=== PATIENT | female | born 1945 | race Caucasian/White ===

== ENCOUNTER 2017-01-11 20:46 | Inpatient (IN) | payer MEDICARE, MEDICAID ==
[~2017-01-11 20:46] MED LIST: ISOVUE-370 76%-LOCM 1 ML ONE
[2017-01-11] MEDS ORDERED: Albuterol Sulfate 2.5 mg/3 ml Neb ONE (20:58)
[2017-01-11] MEDS ORDERED: Magnesium Sulfate 2 GM/100 ML BAG ONE (21:09)
[2017-01-11 21:14] LABS: Oxyhemoglobin 94.6 % (94.0-97.0); Sodium 137 mmol/L (135-148)
[2017-01-11 21:18] LABS: Modified Allen's Test POSITIVE; Pressure Support 10 cmH2O
[2017-01-11 21:20] LABS: #Basophils 0.1 thou/uL (0.0-0.2); #Eosinphils 0.3 thou/uL (0.0-0.7); #Lymphocytes 2.2 thou/uL (1.20-3.40); #Monocytes 1.1 thou/uL (0.11-0.59); #Neutrophils 3.8 thou/uL (1.40-6.50); %Basophils 0.9 % (0.0-1.0); %Eosinophils 3.6 % (0.0-10.0); %Lymphocytes 30.1 % (21.0-51.0); %Monocytes 14.3 % (0.0-10.0); Hematocrit 36.9 % (36.0-47.0); Mean Platelet Volume 7.8 fL (7.4-10.4); Red Blood Cell (RBC) Count 3.85 mill/uL (4.20-5.40); White Blood Cell (WBC) Count 7.4 thou/uL (4.8-10.8)
--- NOTE | 2017-01-11 21:36 | RAD ---
PORTABLE AP CHEST X-RAY 01/11/17 HISTORY: Dyspnea. Worsening shortness of breath today. History of COPD. COMPARISON: 02/25/16. FINDINGS: Stent overlies region of the aortic valve also seen on prior study. The cardiac silhouette and pulmonary vasculature are within normal limits. The lungs are clear. [place] right sided rib fractures are again seen. vascular calcifications are seen in the thoracic aorta. There has been no interval change from prior study. IMPRESSION: No acute cardiopulmonary process. POS: [facility]
[2017-01-11 21:43] LABS: ALT (SGPT) 17 U/L (8-55); AST (SGOT) 22 U/L (5-34); Alkaline Phosphatase 82 U/L (40-150); BUN (Urea Nitrogen) 17 mg/dL (9.8-20.1); Bilirubin, Total 0.2 mg/dL (0.2-1.2); CK (CPK) 327 U/L (29-168); Calc. Creatinine Clearance 0 mL/min (70-130); Calcium 9.3 mg/dL (7.8-10.44); Estimated GFR-MDRD 79; Globulin 3.1 g/dL (2.4-3.5); Lipase 13 U/L (8-78); Magnesium 2.4 mg/dL (1.6-2.6); Protein, Total 7.2 g/dL (6.0-8.3)
[2017-01-11 21:47] LABS: Troponin I Less than 0.010 ng/mL (< 0.028)
[2017-01-11 21:52] LABS: Anion Gap 13 mmol/L (10-20); Carbon Dioxide 36 mmol/L (23-31); Chloride 94 mmol/L (98-107)
--- NOTE | 2017-01-11 23:46 | CT ---
CT ANGIOGRAM THORAX WITH IV CONTRAST AND 3D RECONSTRUCTIONS: 01/11/17 HISTORY: Shortness of breath, worsening cough and congestion. COMPARISON: 02/12/12. FINDINGS: No filling defects are seen in the pulmonary arteries to suggest a pulmonary embolus. Aortic valve r eplacement is noted with stent material seen in this region. Vascular calcifications are seen in the thoracic as well as abdominal aorta. The thoracic aorta is n ormal in caliber without evidence of an aortic dissection. There is a tiny less than 5 mm pulmonary nodule seen within the lateral aspect of the right middle l obe which is stable dating back to study in 2011. No additional pulmonary nodule or mass is seen, an d there is no evidence of a pleural effusion. There is no evidence of lymphadenopathy. Upper abdomen demonstrates a grossly normal CT appearance. Remote left sided rib fractures are present. Right pleural effusion has resolved. IMPRESSION: 1. No CT evidence of a pulmonary embolus. 2. Atherosclerotic vascular calcifications in the coronary arteries and involving the thoracic as well as visualized upper abdominal aorta. 3. Left convex curvature upper thoracic spine with degenerative changes in the spine. POS: [facility]
[2017-01-12 01:02] LABS: Troponin I 0.018 ng/mL (< 0.028)
[2017-01-12] MEDS ORDERED: Ondansetron ODT 4 MG TAB SL PRN (02:24)
[2017-01-12] MEDS ORDERED: Ondansetron HCl/PF 4 MG/2 ML Vial IVP PRN ×2 (02:24→07:28)
[2017-01-12 03:15] VITALS: BMI 21.7
[2017-01-12 04:52] LABS: Troponin I 0.033 ng/mL (< 0.028)
[2017-01-12] MEDS ORDERED: Adenosine 6 MG/2 ML VIAL ONE (06:50)
[2017-01-12] MEDS ORDERED: cloNIDine HCl 0.1 MG TAB PO PRN (07:28)
[2017-01-12] MEDS ORDERED: Chloraseptic Spray 180 ml Bottle PO PRN (07:28)
[2017-01-12] MEDS ORDERED: Loratadine 10 MG TAB PO PRN (07:28)
[2017-01-12] MEDS ORDERED: Artificial Tears 18 DROP/0.9 ML EA EYE PRN (07:28)
[2017-01-12] MEDS ORDERED: Senokot 8.6 MG TAB PO PRN (07:28)
[2017-01-12] MEDS ORDERED: Acetaminophen 325 MG TAB PO PRN (07:28)
[2017-01-12] MEDS ORDERED: Mag-Al 1200 mg/1200 mg/30 ML UDCUP PO PRN (07:28)
[2017-01-12] MEDS ORDERED: Diabetic Tussin 200 MG/10 ML UDCUP PO PRN (07:28)
[2017-01-12] MEDS ORDERED: Sodium Chloride 0.65% Nasal 44 ML BOT EA NARE PRN (07:28)
[2017-01-12] MEDS ORDERED: Ondansetron ODT 4 MG TAB PO PRN (07:28)
[2017-01-12] MEDS ORDERED: Eucerin (Mineral Oil/Petrolatum,White) 30 gm Jar TOP PRN (07:28)
[2017-01-12] MEDS ORDERED: Loperamide HCl 2 MG CAP PO PRN (07:28)
[2017-01-12] MEDS ORDERED: Benzonatate 100 MG CAP PO PRN (07:28)
[2017-01-12] MEDS ORDERED: Milk Of Magnesia 30 ML UDCUP PO PRN (07:28)
[2017-01-12] MEDS ORDERED: Dextrose 50% Abboject 50 ML SYRINGE SLOW IVP PRN (07:34)
[2017-01-12] MEDS ORDERED: Dextrose 5% in Water 1,000 ML IV PRN (07:34)
[2017-01-12] MEDS ORDERED: Furosemide 40 MG TAB PO SCH (09:00)
[2017-01-12] MEDS ORDERED: Enoxaparin Sodium 40 MG/0.4 ML SYRINGE SC SCH (09:00)
[2017-01-12] MEDS ORDERED: Non-Formulary Item 1 EACH (Escitalopram Oxalate [Lexapro] 5 MG) PO SCH (09:00)
[2017-01-12] MEDS ORDERED: Senokot 8.6 MG TAB PO SCH (09:00)
[2017-01-12] MEDS ORDERED: Lorazepam 1 MG TAB PO SCH (09:00)
[2017-01-12] MEDS ORDERED: Non-Formulary Item 1 EACH (Cholecalciferol (Vitamin D3) [Vitamin D3] 1,000 UNIT) PO SCH (09:00)
[2017-01-12] MEDS ORDERED: Non-Formulary Item 1 EACH (Ubidecarenone [Co Q-10] 100 MG) PO SCH (09:00)
[2017-01-12] MEDS ORDERED: Furosemide 20 MG TAB PO SCH (09:00)
[2017-01-12] MEDS: Lorazepam 0.5 MG TAB PO SCH (09:08)
[2017-01-12] MEDS: Ubidecarenone 50 MG CAP PO SCH (09:09)
[2017-01-12] MEDS: Escitalopram Oxalate 10 mg Tablet PO SCH (09:09)
[2017-01-12] MEDS: guaiFENesin ER 600 MG TAB PO SCH ×2 (09:09→20:14)
[2017-01-12] MEDS: Digoxin 0.125 MG TAB PO SCH (09:09)
[2017-01-12] MEDS: Polyethylene Glycol 3350 17 GM Packet PO SCH ×2 (09:19→20:14)
[2017-01-12] MEDS: HumaLOG 300 UNITS/3 ML VIAL SC PRN ×4 (09:20→20:14)
[2017-01-12] MEDS: Senokot 8.6 MG TAB PO SCH ×2 (09:40→20:14)
--- NOTE | 2017-01-12 10:59 | HP ---
PRIMARY CARE PHYSICIAN: Dr. Aramis Harris at [facility]. PRIMARY FINISHING OPERATOR: Dr. Patricio REASON FOR ADMISSION: COPD exacerbation, [id number] respiratory failure with hypoxia. HISTORY OF PRESENT ILLNESS: A 71-year-old female who has underlying history of chronic respiratory failure requiring home oxygen 3 liters nasal cannula as well as history of COPD and chronic diastolic heart failure who presented to emergency room last night with complaint of shortness of breath. Patient was having shortness of breath for the last couple of days which was gradually getting worse, but last night she had more short of breath and she was not able to take breathe and she was not able to talk in full sentences. She was feeling rapidly worse and that is why she called paramedics and paramedics brought her to the emergency room for evaluation. When this patient came to the ER, patient was hypertensive. She was given Solu- Medrol 125 mg, Zofran 8 mg, nitro spray and nitro patch by paramedics. The patient was in respiratory distress and subsequently she was admitted in IMCU. This morning, the patient appeared to be comfortable. She was on BiPAP. She was able to talk and provide history. This patient does use oxygen at home and she does have a nebulizer therapy. She denies any flu-like illness. She denies any chest pain, palpitations or syncope. She denies any lower extremity edema. She denies any calf tenderness. She denies any recent travel or sick exposure. She denies any nausea, vomiting, diarrhea, abdominal pain, hematochezia, or melena. REVIEW OF SYSTEMS: The following complete review of systems was negative, unless otherwise mentioned in the HPI or below: Constitutional: Weight loss or gain, ability to conduct usual activities. Skin: Rash, itching. Eyes: Double vision, pain. ENT/Mouth: Nose bleeding, neck stiffness, pain, tenderness. Cardiovascular: Palpitations, dyspnea on exertion, orthopnea. Respiratory: Shortness of breath, wheezing, cough, hemoptysis, fever or night sweats. Gastrointestinal: Poor appetite, abdominal pain, heartburn, nausea, vomiting, constipation, or diarrhea. Genitourinary: Urgency, frequency, dysuria, nocturia. Musculoskeletal: Pain, swelling. Neurologic/Psychiatric: Anxiety, depression. Allergy/Immunologic: Skin rash, bleeding tendency. Please see my HPI for pertinent positives and negatives. All other review of systems reviewed and negative except as mentioned in the HPI. EMERGENCY ROOM COURSE: Patient was given Solu-Medrol 125 mg, nitro patch, nitro paste by paramedics. Magnesium 2 grams and albuterol nebulization and Levaquin 750 mg was given in our emergency room. ALLERGIES: SULFA DRUGS. CURRENT HOME MEDICATIONS: ProAir HFA 2 puffs q.8 h. p.r.n., Lipitor 40 mg p.o. at bedtime, Symbicort two puff inhalation b.i.d., vitamin D3 1000 units p.o. daily, digoxin 125 mcg p.o. daily, Lexapro 5 mg p.o. daily, formoterol 20 mcg nebulization b.i.d., Lasix 20 mg p.o. daily, Lantus 9 units subQ at bedtime, Humalog insulin as per sliding scale, DuoNeb daily, Synthroid 125 mcg p.o. daily , Ativan 0.5 mg p.o. daily, MiraLax 17 grams p.o. b.i.d., senna 1 tablet twice daily, Spiriva 18 mcg inhalation daily, Coenzyme Q10 100 mg p.o. daily. PAST MEDICAL HISTORY: Chronic respiratory failure requiring home oxygen, chronic COPD, chronic diastolic heart failure, coronary artery disease, moderate aortic valve stenosis, diabetes type 2, hypertension, hypothyroidism, chronic normocytic anemia, gastroesophageal reflux disease, chronic kidney disease stage 2, diverticulosis, history of TIA, former smoker. PAST SURGICAL HISTORY: Cardiac catheterization, tubal ligation, abdominal surgery, carpal tunnel repair. PAST PSYCHIATRIC HISTORY: Anxiety and depression. FAMILY HISTORY: The patient denies any family history of premature coronary artery disease, stroke or cancer. SOCIAL HISTORY: Patient is a former smoker. She quit smoking about 6 years ago. No history of current tobacco, alcohol or illicit drug abuse. PHYSICAL EXAMINATION: VITAL SIGNS: On arrival to the emergency room, blood pressure 175/89, pulse 108 , respiratory rate 23, temperature 97.6, saturation 100% on BiPAP, weight 50.8 kilograms. GENERAL: Patient is currently alert, awake, no obvious acute distress, currently on BiPAP. HEENT: Normocephalic, atraumatic. Eyes: Pupils round, reactive to light. Extraocular muscles intact. ENT: Oropharynx within normal limits. Moist mucous membranes. No oral lesions. No pharyngeal erythema, no exudate. NECK: Supple. Range of motion is normal. No meningeal signs of irritation and no JVD. LUNGS: Coarse breath sounds noted, bilateral end expiratory wheezing heard. Air entry reduced. A few basilar rales noted. CARDIAC: S1, S2 regular, tachycardia, systolic murmur noted. No gallop, no rub. ABDOMEN: Soft, bowel sounds present, nontender, nondistended. No organomegaly , no mass, no suprapubic tenderness. BACK: Unremarkable, no CVA tenderness. EXTREMITIES: Upper extremity passive movement of all joints are normal. Lower extremities: No edema. Good peripheral pulsation. SKIN: No skin rash. HEMATOLOGICAL: No lymphadenopathy. PSYCHIATRIC: Normal affect. SIGNIFICANT LABORATORY DATA AND DIAGNOSTIC STUDIES: CBC: WBC 7.4, hemoglobin 11.6, platelets 205. ABG: pH 7.27, bicarbonate 39.4, CO2 88.8, O2 97.2 on BiPAP. BMP shows sodium 139, potassium 4.0, chloride 94, carbon dioxide 36, anion gap 13, BUN 17, creatinine 0.73, glucose 86, calcium 9.3. Lactic acid 1.1. LFT: AST 22, ALT 17, alkaline phosphatase 82, albumin 4.1, CK 327, CK-MB 3.0, troponin I less than 0.010. BNP 52.6. Second cardiac enzymes negative. Lipase 13. Chest x-ray based on my review, no acute cardiopulmonary process. CT angio chest based on my review and reported as no evidence of pulmonary embolism. ASSESSMENT AND PLAN: 1. [id number]-[id number] respiratory failure with hypoxia and hypercapnia. The patient required BiPAP initially and now patient is comfortable. We will try to wean her from BiPAP today and Pulmonary will be consulted. We will continue oxygen to maintain saturation up to 92%. 2. Chronic obstructive pulmonary disease exacerbation. We will continue with DuoNeb every 4 hourly, Solu-Medrol 40 mg IV q.6 h., formoterol nebulization twice daily, Mucinex 600 mg twice daily along with empiric antibiotic therapy with Levaquin 500 mg p.o. daily. Pulmonary will be consulted and will monitor clinical response. 3. Dyslipidemia. We will continue Lipitor 40 mg p.o. at bedtime. 4. Vitamin D deficiency. We will continue vitamin D3 1000 units p.o. daily. 5. Anxiety and depression. We will continue Ativan 0.5 mg p.o. daily and Lexapro 5 mg p.o. daily. 6. Diabetes type 2. We will continue the Levemir 9 units subQ at bedtime along with Humalog insulin as per sliding scale per protocol. We are expecting that with steroid her diabetes may get worse, but in that case, we will increase the insulin requirement. 7. Hypothyroidism. We will continue Synthroid 125 mcg p.o. daily. 8. Elevated troponin, likely due to demand ischemia. We will monitor on the telemetry floor. 9. Gastroesophageal reflux disease. Continue Protonix 40 mg p.o. daily. 10. Deep venous thrombosis prophylaxis, Lovenox 30 mg subcutaneously daily and gastrointestinal prophylaxis, Protonix 40 mg p.o. daily. 11. chronic diastolic heart failure: currently stable and compensated 12. CAD: stable with home medical treatment 13. Hypertension: controlled with home medication 14. Moderate aortic stenosis: advised follow with cardiology after discharge. CODE STATUS: I spoke with the patient and the patient does not want to be resuscitated in case of cardiopulmonary arrest and she requested DNR order. Patient's son is surrogate decision maker. Disposition plan based on clinical course. We are expecting patient's stay in hospital more than 2 midnights. Plan of care discussed with the patient in detail. NEELAM
[2017-01-12] MEDS ORDERED: Furosemide 20 MG/2 ML VIAL SLOW IVP SCH (13:15)
--- NOTE | 2017-01-12 15:34 | CON ---
DATE OF CONSULTATION: 01/12/2017 SERVICE: Pulmonary Medicine REASON FOR CONSULTATION: COPD exacerbation. HISTORY OF PRESENT ILLNESS: The patient is a 71-year-old white female with past medical history significant for pretty severe COPD who presented to the Emergency Department after an abrupt onset of difficulty breathing while she was drinking a glass of wine. She also has anxiety disorder. She has a history of aortic stenosis and her valve has been replaced. She was placed on CPAP overnight. She had a significant improvement in her breathing. She denies any current fevers, chills, nausea or vomiting. Her cough is at baseline. Her dyspnea is actually improved back to normal. PAST MEDICAL HISTORY: 1. COPD, severe. 2. History of aortic stenosis, status post aortic valve replacement. 3. Coronary artery disease. 4. Hypertension. 5. Dyslipidemia. 6. Chronic hypoxic respiratory failure. 7. Chronic diastolic heart failure. 8. Type 2 diabetes mellitus. 9. Hypothyroidism. 10. Gastroesophageal reflux disease. 11. Chronic kidney disease, stage 2. 12. Anxiety disorder. 13. Major depressive disorder. 14. History of TIA. PAST SURGICAL HISTORY: 1. Cardiac catheterization. 2. Aortic valve replacement. 3. Belly surgery. 4. Tubal ligation. ALLERGIES: SULFA. HOME MEDICATIONS: List of inpatient medications were reviewed. Multiple updates were made. FAMILY HISTORY: Noncontributory. SOCIAL HISTORY: She has a [id number] history of smoking, but quit roughly 4 years ago. She has no current use of alcohol, tobacco or illicit drugs. She has no exposure to chemicals, dust, asbestos or tuberculosis. REVIEW OF SYSTEMS: General, head, ears, eyes, nose, throat, cardiovascular, respiratory, GI, , musculoskeletal, neurologic and skin is negative except as mentioned in the HPI. PHYSICAL EXAMINATION: VITAL SIGNS: Afebrile, pulse was 96, blood pressure was 113/33, respirations 20 , saturation 95% on 3 liters nasal cannula. GENERAL: The patient is awake, alert, in no apparent distress. LUNGS: Reduced air entry with prolonged expiratory phase and wheezing. There is extensive crackles in the bibasilar region. HEART: Normal rate, regular. ABDOMEN: Soft, nontender, nondistended, bowel sounds positive. MUSCULOSKELETAL: No cyanosis or clubbing. There is trace pitting in the bilateral lower extremities. GENITOURINARY: No Pan. NEUROLOGIC: Grossly nonfocal. LABORATORY: WBC 7.4, hemoglobin 11.6, platelets 205,000. INR 1.0. PH 7.27, pCO2 88, pO2 97. Lactate 1.1. Blood sugars 424. Troponin is up trending to 0.033. Basic metabolic profile, and liver function studies are otherwise unremarkable. BNP was normal. Blood cultures x2 are negative to date. IMAGING: CT of the chest demonstrates no evidence of a pulmonary embolism. There is no acute abnormality identified. No pneumonia. Chronic changes consistent with emphysema are present. Chest x-ray demonstrates no acute cardiopulmonary abnormality. ASSESSMENT: 1. Acute on chronic hypoxic and hypercapnic respiratory failure. 2. Chronic obstructive pulmonary disease with acute exacerbation. 3. Acute on chronic diastolic heart failure. 4. Aortic stenosis. PLAN: We will diurese the patient. At this point, she can transition out of the ICU. I will deescalate her steroids. We will commit her to a 5-day course of prednisone. I will escalate her insulin. Pulmonary Critical Care will continue to follow while she remains in house. NEELAM
[2017-01-12] MEDS: Mometasone/Formoterol 120 PUFF INHALER INH SCH (18:37)
[2017-01-12] MEDS ORDERED: Budesonide 0.5 MG/2 ML NEB INH SCH (19:30)
[2017-01-12] MEDS: Insulin Detemir 100 UNITS/ML 9 UNITS in Pre-Filled Syringe 1 EACH SC SCH (20:13)
[2017-01-12] MEDS: Atorvastatin Calcium 40 MG TAB PO SCH (20:14)
[2017-01-12] MEDS ORDERED: INSULIN GLARGINE HUM REC ANLOG 9 UNIT SQ SCH (21:00)
[2017-01-13 05:19] LABS: #Basophils 0.1 thou/uL (0.0-0.2); #Lymphocytes 1.2 thou/uL (1.20-3.40); #Monocytes 1.4 thou/uL (0.11-0.59); #Neutrophils 9.3 thou/uL (1.40-6.50); %Basophils 0.4 % (0.0-1.0); %Eosinophils 0.4 % (0.0-10.0); %Lymphocytes 9.9 % (21.0-51.0); %Monocytes 11.6 % (0.0-10.0); Hematocrit 30.9 % (36.0-47.0); Mean Platelet Volume 8.3 fL (7.4-10.4); Red Blood Cell (RBC) Count 3.21 mill/uL (4.20-5.40); White Blood Cell (WBC) Count 11.9 thou/uL (4.8-10.8)
[2017-01-13 05:44] LABS: ALT (SGPT) 15 U/L (8-55); AST (SGOT) 26 U/L (5-34); Alkaline Phosphatase 64 U/L (40-150); BUN (Urea Nitrogen) 29 mg/dL (9.8-20.1); Bilirubin, Total 0.2 mg/dL (0.2-1.2); Calc. Creatinine Clearance 61 mL/min (70-130); Calcium 8.7 mg/dL (7.8-10.44); Estimated GFR-MDRD 82; Globulin 2.3 g/dL (2.4-3.5); Protein, Total 5.7 g/dL (6.0-8.3)
[2017-01-13 05:54] LABS: Anion Gap 11 mmol/L (10-20); Carbon Dioxide 36 mmol/L (23-31); Chloride 94 mmol/L (98-107)
[2017-01-13] MEDS: Levothyroxine Sodium 125 MCG TAB PO SCH (05:58)
[2017-01-13] MEDS: Mometasone/Formoterol 120 PUFF INHALER INH SCH ×2 (07:11→18:16)
[2017-01-13] MEDS: Budesonide 0.5 MG/2 ML NEB INH SCH ×2 (07:11→18:15)
[2017-01-13] MEDS: Senokot 8.6 MG TAB PO SCH ×2 (08:48→20:40)
[2017-01-13] MEDS: predniSONE 20 MG TAB PO SCH (08:48)
[2017-01-13] MEDS: Escitalopram Oxalate 10 mg Tablet PO SCH (08:48)
[2017-01-13] MEDS: guaiFENesin ER 600 MG TAB PO SCH ×2 (08:48→20:38)
[2017-01-13] MEDS: Lorazepam 0.5 MG TAB PO SCH (08:49)
[2017-01-13] MEDS: Polyethylene Glycol 3350 17 GM Packet PO SCH ×2 (08:50→20:38)
[2017-01-13] MEDS: Digoxin 0.125 MG TAB PO SCH (08:50)
[2017-01-13] MEDS: Furosemide 20 MG/2 ML VIAL SLOW IVP SCH (08:51)
[2017-01-13] MEDS: Enoxaparin Sodium 30 MG/0.3 ML SYRINGE SC SCH (08:51)
[2017-01-13] MEDS: Ubidecarenone 50 MG CAP PO SCH (10:20)
[2017-01-13] MEDS: HumaLOG 300 UNITS/3 ML VIAL SC PRN ×3 (11:58→20:39)
--- NOTE | 2017-01-13 13:48 | PDOC.PN ---
- Subjective Encounter Start Date: 01/13/17 Encounter Start Time: 11:00 Subjective: breathing better, no sob - Objective Resuscitation Status: Resuscitation Status DNR:Do Not Resuscitate MAR Reviewed: Yes Vital Signs & Weight: Vital Signs (12 hours) Temp Pulse Resp BP Pulse Ox 01/13/17 11:38 98.8 F 92 18 127/71 97 01/13/17 11:05 91 16 98 01/13/17 08:50 86 01/13/17 08:00 98.8 F 86 18 01/13/17 07:33 98.8 F 86 18 125/66 98 01/13/17 07:11 98 16 98 01/13/17 07:09 98 16 98 01/13/17 04:36 98.7 F 99 20 113/63 100 01/13/17 02:15 101 H 16 99 Weight Weight 114 lb 11.2 oz I&O: 01/12/17 01/13/17 01/14/17 06:59 06:59 06:59 Intake Total 100 600 Output Total 300 Balance -200 600 Result Diagrams: 01/13/17 04:44 01/13/17 04:44 Additional Labs: Accuchecks 01/13/17 01/13/17 01/12/17 11:01 04:42 19:24 POC Glucose 295 H 81 360 H 01/12/17 01/12/17 16:37 13:34 POC Glucose 469 H 535 H Phys Exam - Physical Examination HEENT: PERRLA, moist MMs Neck: no JVD, supple Respiratory: no wheezing, no rales rhonchi+ Cardiovascular: RRR, no significant murmur Gastrointestinal: soft, non-tender, positive bowel sounds Musculoskeletal: no edema, pulses present Neurological: non-focal, moves all 4 limbs Psychiatric: A&O x 3 Dx/Plan (1) Acute and chronic respiratory failure with hypoxia Code(s): J96.21 - ACUTE AND CHRONIC RESPIRATORY FAILURE WITH HYPOXIA Status: Acute Comment: Improved (2) COPD exacerbation Code(s): J44.1 - CHRONIC OBSTRUCTIVE PULMONARY DISEASE W (ACUTE) EXACERBATION Status: Acute Comment: Improved (3) Anxiety and depression Code(s): F41.9 - ANXIETY DISORDER, UNSPECIFIED; F32.9 - MAJOR DEPRESSIVE DISORDER, SINGLE EPISODE, UNSPECIFIED Status: Chronic (4) Aortic stenosis Code(s): I35.0 - NONRHEUMATIC AORTIC (VALVE) STENOSIS Status: Chronic Comment: has pig valve replacement per patient, done at [facility] [place] (5) CAD (coronary artery disease) Code(s): I25.10 - ATHSCL HEART DISEASE OF [place] CORONARY ARTERY W/O ANG PCTRS Status: Chronic Qualifiers: Coronary Disease-Associated Artery/Lesion type: [place] artery [place] vs. transplanted heart: [place] heart Associated angina: without angina Qualified Code(s): I25.10 - Atherosclerotic heart disease of [place] coronary artery without angina pectoris (6) Hypertension Code(s): I10 - ESSENTIAL (PRIMARY) HYPERTENSION Status: Chronic Qualifiers: Hypertension type: essential hypertension Qualified Code(s): I10 - Essential (primary) hypertension (7) Hypothyroidism Code(s): E03.9 - HYPOTHYROIDISM, UNSPECIFIED Status: Chronic Qualifiers: Hypothyroidism type: unspecified Qualified Code(s): E03.9 - Hypothyroidism , unspecified (8) Normocytic anemia Code(s): D64.9 - ANEMIA, UNSPECIFIED Status: Chronic Comment: Stable - Plan is on prednisone, duonebs -: lasix iv small dose -: labile diabetes due to steroids ranging from 68-535 -: h/h stable -: to amb as tolerated, dc plan per pulm advice * . Review of Systems - Medications/Allergies Allergies/Adverse Reactions: Allergies Allergy/AdvReac Type Severity Reaction Status Date / Time Sulfa (Sulfonamide Allergy itching Verified 03/27/15 00:33 Antibiotics) Medications: Current Medications Acetaminophen (Tylenol) 650 mg PO Q4H PRN PRN Reason: Headache/Fever or Pain Last Admin: 01/12/17 09:40 Dose: 650 mg Al Hydroxide/Mg Hydroxide (Maalox) 30 ml PO Q6H PRN PRN Reason: Heartburn or Indigestion Albuterol/Ipratropium (Duoneb) 3 ml NEB [id number] AIDA Last Admin: 01/13/17 11:05 Dose: 3 ml Aspirin (Aspirin Chewable) 81 mg PO DAILY AIDA Last Admin: 01/13/17 08:48 Dose: 81 mg Atorvastatin Calcium (Lipitor) 40 mg PO HS AIDA Last Admin: 01/12/17 20:14 Dose: 40 mg Budesonide (Pulmicort Neb Solution) 0.5 mg INH BID-RT [facility]IDA Last Admin: 01/13/17 07:11 Dose: 0.5 mg Cholecalciferol (Vitamin D3) 1,000 units PO DAILY [facility] Last Admin: 01/13/17 08:48 Dose: 1,000 units Clonidine HCl (Catapres) 0.1 mg PO Q4H PRN PRN Reason: Systolic BP > 180 Coenzyme Q10 (Coenzyme Q10) 100 mg PO DAILY [facility] Last Admin: 01/13/17 10:20 Dose: 100 mg Dextrose/Water (Dextrose 50%) 25 gm SLOW IVP PRN PRN PRN Reason: Hypoglycemia Digoxin (Lanoxin) 0.125 mg PO DAILY [facility] Last Admin: 01/13/17 08:50 Dose: 0.125 mg Enoxaparin Sodium (Lovenox) 30 mg SC 0900 [facility] Last Admin: 01/13/17 08:51 Dose: 30 mg Escitalopram Oxalate (Lexapro) 5 mg PO DAILY [facility] Last Admin: 01/13/17 08:48 Dose: 5 mg Furosemide (Lasix) 20 mg SLOW IVP DAILY [facility] Last Admin: 01/13/17 08:51 Dose: 20 mg Glucagon (Glucagon) 1 mg IM PRN PRN PRN Reason: Hypoglycemia Guaifenesin (Mucinex) 600 mg PO Q12HR [facility] Last Admin: 01/13/17 08:48 Dose: 600 mg Hydralazine HCl (Apresoline) 10 mg SLOW IVP Q4H PRN PRN Reason: Systolic BP > 180 Dextrose/Water (D5w) 1,000 mls @ 0 mls/hr IV .Q0M PRN; As Directed PRN Reason: Hypoglycemia Insulin Detemir 9 units/ (Miscellaneous Medication) 0.09 mls @ 0 mls/hr SC HS [facility] Last Admin: 01/12/17 20:13 Dose: 0.09 mls Insulin Human Lispro (Humalog) 0 units SC .MODERATE SLIDING SC PRN PRN Reason: Moderate Correction[place] Scale Last Admin: 01/13/17 11:58 Dose: 6 unit Insulin Human Lispro (Humalog) 0 units SC .BEDTIME SLIDING SC PRN PRN Reason: Bedtime [place] Scale Levothyroxine Sodium (Synthroid) 125 mcg PO 0600 [facility] Last Admin: 01/13/17 05:58 Dose: 125 mcg Loperamide HCl (Imodium) 2 mg PO PRN PRN PRN Reason: Diarrhea/Loose Stools Loratadine (Claritin) 10 mg PO DAILYPRN PRN PRN Reason: Sinus Symptoms Lorazepam (Ativan) 0.5 mg PO DAILY [facility] Last Admin: 01/13/17 08:49 Dose: 0.5 mg Magnesium Hydroxide (Milk Of Magnesium) 30 ml PO DAILYPRN PRN PRN Reason: Constipation Mineral Oil/White Petrolatum (Eucerin Cream) 0 gm TOP BIDPRN PRN PRN Reason: Dry Skin Mometasone Furoate/Formoterol Fumar (Dulera 200 Mcg/5 Mcg Inhaler) 2 puff INH BID-RT [facility] Last Admin: 01/13/17 07:11 Dose: 2 puff Ondansetron HCl (Zofran Odt) 4 mg PO Q6H PRN PRN Reason: Nausea/Vomiting Ondansetron HCl (Zofran) 4 mg IVP Q6H PRN PRN Reason: Nausea/Vomiting Pantoprazole Sodium (Protonix) 40 mg PO DAILY [facility] Last Admin: 01/13/17 08:50 Dose: 40 mg Phenol (Chloraseptic [place] 180 Ml Bot) 0 ml PO PRN PRN PRN Reason: Sore Throat Polyethylene Glycol (Miralax) 17 gm PO BID [facility] Last Admin: 01/13/17 08:50 Dose: 17 gm Prednisone (Prednisone) 40 mg PO QA-[facility] Stop: 01/16/17 08:01 Last Admin: 01/13/17 08:48 Dose: 40 mg Senna (Senokot) 2 tab PO HSPRN PRN PRN Reason: Constipation Senna (Senokot) 1 tab PO BID [facility] Last Admin: 01/13/17 08:48 Dose: 1 tab Sodium Chloride (Kuna Nasal [place] 0.65%) 0 ml EA NARE QIDPRN PRN PRN Reason: Nasal Congestion Sodium Chloride (Flush - Normal Saline) 10 ml IVF Q12HR [facility] Last Admin: 01/13/17 09:03 Dose: 10 ml Sodium Chloride (Flush - Normal Saline) 10 ml IVF PRN PRN PRN Reason: Saline Flush
--- NOTE | 2017-01-13 14:00 | PRG ---
DATE OF SERVICE: 01/13/2017 SERVICE: Pulmonary Medicine. INTERVAL HISTORY: The patient is doing really well from a respiratory standpoint. She is breathing comfortably. She has no specific complaints of fevers, chills, nausea or vomiting. She feels like the crud in her lungs is breaking up little bit, but she is having a hard time getting it out. All things considered though, she is moving in the right direction and has nearly returned to her usual state of health. PHYSICAL EXAMINATION: VITAL SIGNS: Afebrile, pulse 86, blood pressure 125/66, respirations 18, saturation 98% on 3 liters nasal cannula. GENERAL: Patient is awake, alert, in no apparent distress. LUNGS: Excellent air entry with no prolonged expiratory phase, wheezing, rhonchi or crackles. HEART: Normal rate, regular. ABDOMEN: Soft, nontender, nondistended. Bowel sounds positive. MUSCULOSKELETAL: No cyanosis or clubbing. No pitting in the bilateral lower extremities. NEUROLOGIC: Grossly nonfocal. LABORATORY DATA: Basic metabolic profile is essentially unremarkable with bicarbonate of 36, likely her baseline. Creatinine 0.71. Liver function studies are unremarkable. WBC 11.9, hemoglobin 9.8 , and platelets 182,000. Blood cultures x2 are unremarkable. ASSESSMENT: 1. Acute on chronic hypoxic and hypercapnic respiratory failure. 2. Chronic obstructive pulmonary disease with acute exacerbation. 3. Acute on chronic diastolic heart failure. 4. Aortic stenosis. PLAN: The patient had a very nice response to Lasix. Steroids can be discontinued after a total du ration of 5 days. Antibiotics can be stopped after a total duration of 5 days. From my perspective , if she remains stable or continues to improve from a respiratory perspective over the next 24 hour s, she can be considered for discharge from the hospital to resume her home inhalers. 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
[2017-01-13] MEDS: Atorvastatin Calcium 40 MG TAB PO SCH (20:38)
[2017-01-13] MEDS: Insulin Detemir 100 UNITS/ML 9 UNITS in Pre-Filled Syringe 1 EACH SC SCH (20:38)
[2017-01-14] MEDS: Levothyroxine Sodium 125 MCG TAB PO SCH (05:23)
[2017-01-14] MEDS: Budesonide 0.5 MG/2 ML NEB INH SCH ×2 (06:52→18:48)
[2017-01-14] MEDS: Mometasone/Formoterol 120 PUFF INHALER INH SCH ×2 (06:53→19:03)
[2017-01-14] MEDS: Lorazepam 0.5 MG TAB PO SCH (08:23)
[2017-01-14] MEDS: Escitalopram Oxalate 10 mg Tablet PO SCH (08:23)
[2017-01-14] MEDS: Senokot 8.6 MG TAB PO SCH ×2 (08:23→20:35)
[2017-01-14] MEDS: guaiFENesin ER 600 MG TAB PO SCH ×2 (08:23→20:35)
[2017-01-14] MEDS: Polyethylene Glycol 3350 17 GM Packet PO SCH ×2 (08:23→20:36)
[2017-01-14] MEDS: predniSONE 20 MG TAB PO SCH (08:23)
[2017-01-14] MEDS: Furosemide 20 MG/2 ML VIAL SLOW IVP SCH (08:24)
[2017-01-14] MEDS: Enoxaparin Sodium 30 MG/0.3 ML SYRINGE SC SCH (08:24)
[2017-01-14] MEDS: Digoxin 0.125 MG TAB PO SCH (08:25)
[2017-01-14] MEDS: Ubidecarenone 50 MG CAP PO SCH (08:36)
--- NOTE | 2017-01-14 11:49 | PDOC.PN ---
- Subjective Encounter Start Date: 01/14/17 Encounter Start Time: 10:40 Subjective: still had coughing spells last night -: overall is feeling better -: wants humidified oxygen - Objective Resuscitation Status: Resuscitation Status DNR:Do Not Resuscitate MAR Reviewed: Yes Vital Signs & Weight: Vital Signs (12 hours) Temp Pulse Resp BP Pulse Ox 01/14/17 10:48 89 16 98 01/14/17 08:25 90 01/14/17 08:00 97.8 F 90 18 01/14/17 07:51 97.8 F 86 18 145/67 H 100 01/14/17 06:52 86 16 99 01/14/17 06:50 86 16 99 01/14/17 04:00 98.5 F 86 20 102/57 L 100 01/14/17 02:47 99 16 99 01/14/17 00:29 98.5 F 99 20 97/57 L 99 Weight Weight 114 lb 11.2 oz I&O: 01/13/17 01/14/17 01/15/17 06:59 06:59 06:59 Intake Total 600 300 480 Balance 600 300 480 Result Diagrams: 01/13/17 04:44 01/13/17 04:44 Additional Labs: Accuchecks 01/14/17 01/14/17 01/13/17 11:09 04:24 19:21 POC Glucose 209 H 82 379 H 01/13/17 15:21 POC Glucose 326 H Phys Exam - Physical Examination HEENT: PERRLA, moist MMs Neck: no JVD, supple Respiratory: no wheezing rales+ Cardiovascular: RRR, no significant murmur Gastrointestinal: soft, non-tender, positive bowel sounds Musculoskeletal: no edema, pulses present Neurological: non-focal, moves all 4 limbs Psychiatric: A&O x 3 Dx/Plan (1) Acute and chronic respiratory failure with hypoxia Code(s): J96.21 - ACUTE AND CHRONIC RESPIRATORY FAILURE WITH HYPOXIA Status: Acute Comment: Improved (2) COPD exacerbation Code(s): J44.1 - CHRONIC OBSTRUCTIVE PULMONARY DISEASE W (ACUTE) EXACERBATION Status: Acute Comment: Improved (3) Anxiety and depression Code(s): F41.9 - ANXIETY DISORDER, UNSPECIFIED; F32.9 - MAJOR DEPRESSIVE DISORDER, SINGLE EPISODE, UNSPECIFIED Status: Chronic (4) Aortic stenosis Code(s): I35.0 - NONRHEUMATIC AORTIC (VALVE) STENOSIS Status: Chronic Comment: has pig valve replacement per patient, done at [facility] (5) CAD (coronary artery disease) Code(s): I25.10 - ATHSCL HEART DISEASE OF [place] CORONARY ARTERY W/O ANG PCTRS Status: Chronic Qualifiers: Coronary Disease-Associated Artery/Lesion type: [place] artery [place] vs. transplanted heart: [place] heart Associated angina: without angina Qualified Code(s): I25.10 - Atherosclerotic heart disease of [place] coronary artery without angina pectoris (6) Hypertension Code(s): I10 - ESSENTIAL (PRIMARY) HYPERTENSION Status: Chronic Qualifiers: Hypertension type: essential hypertension Qualified Code(s): I10 - Essential (primary) hypertension (7) Hypothyroidism Code(s): E03.9 - HYPOTHYROIDISM, UNSPECIFIED Status: Chronic Qualifiers: Hypothyroidism type: unspecified Qualified Code(s): E03.9 - Hypothyroidism , unspecified (8) Normocytic anemia Code(s): D64.9 - ANEMIA, UNSPECIFIED Status: Chronic Comment: Stable - Plan mild vol overload, is responding well to lasix -: dm is uncontrolled and labile due to steroids -: will increase levemir for now -: likely dc in am if stable -: is on 2.5liters oxygen at home * . Review of Systems - Medications/Allergies Allergies/Adverse Reactions: Allergies Allergy/AdvReac Type Severity Reaction Status Date / Time Sulfa (Sulfonamide Allergy itching Verified 03/27/15 00:33 Antibiotics) Medications: Current Medications Acetaminophen (Tylenol) 650 mg PO Q4H PRN PRN Reason: Headache/Fever or Pain Last Admin: 01/12/17 09:40 Dose: 650 mg Al Hydroxide/Mg Hydroxide (Maalox) 30 ml PO Q6H PRN PRN Reason: Heartburn or Indigestion Albuterol/Ipratropium (Duoneb) 3 ml NEB [id number] AIDA Last Admin: 01/14/17 10:48 Dose: 3 ml Aspirin (Aspirin Chewable) 81 mg PO DAILY AIDA Last Admin: 01/14/17 08:23 Dose: 81 mg Atorvastatin Calcium (Lipitor) 40 mg PO HS AIDA Last Admin: 01/13/17 20:38 Dose: 40 mg Budesonide (Pulmicort Neb Solution) 0.5 mg INH BID-RT AIDA Last Admin: 01/14/17 06:52 Dose: 0.5 mg Cholecalciferol (Vitamin D3) 1,000 units PO DAILY [facility] Last Admin: 01/14/17 08:23 Dose: 1,000 units Clonidine HCl (Catapres) 0.1 mg PO Q4H PRN PRN Reason: Systolic BP > 180 Coenzyme Q10 (Coenzyme Q10) 100 mg PO DAILY [facility] Last Admin: 01/14/17 08:36 Dose: 100 mg Dextrose/Water (Dextrose 50%) 25 gm SLOW IVP PRN PRN PRN Reason: Hypoglycemia Digoxin (Lanoxin) 0.125 mg PO DAILY [facility] Last Admin: 01/14/17 08:25 Dose: 0.125 mg Enoxaparin Sodium (Lovenox) 30 mg SC 0900 [facility] Last Admin: 01/14/17 08:24 Dose: 30 mg Escitalopram Oxalate (Lexapro) 5 mg PO DAILY [facility] Last Admin: 01/14/17 08:23 Dose: 5 mg Furosemide (Lasix) 20 mg SLOW IVP DAILY [facility] Last Admin: 01/14/17 08:24 Dose: 20 mg Glucagon (Glucagon) 1 mg IM PRN PRN PRN Reason: Hypoglycemia Guaifenesin (Mucinex) 600 mg PO Q12HR [facility] Last Admin: 01/14/17 08:23 Dose: 600 mg Hydralazine HCl (Apresoline) 10 mg SLOW IVP Q4H PRN PRN Reason: Systolic BP > 180 Dextrose/Water (D5w) 1,000 mls @ 0 mls/hr IV .Q0M PRN; As Directed PRN Reason: Hypoglycemia Insulin Detemir 10 units/ (Miscellaneous Medication) 0.1 mls @ 0 mls/hr SC BID [facility] Insulin Detemir 10 units/ (Miscellaneous Medication) 0.1 mls @ 0 mls/hr SC ONE [facility] Insulin Human Lispro (Humalog) 0 units SC .MODERATE SLIDING SC PRN PRN Reason: Moderate Correctional Scale Last Admin: 01/13/17 17:37 Dose: 8 unit Insulin Human Lispro (Humalog) 0 units SC .BEDTIME SLIDING SC PRN PRN Reason: Bedtime Correctional Scale Last Admin: 01/13/17 20:39 Dose: 5 unit Levothyroxine Sodium (Synthroid) 125 mcg PO 0600 [facility] Last Admin: 01/14/17 05:23 Dose: 125 mcg Loperamide HCl (Imodium) 2 mg PO PRN PRN PRN Reason: Diarrhea/Loose Stools Loratadine (Claritin) 10 mg PO DAILYPRN PRN PRN Reason: Sinus Symptoms Lorazepam (Ativan) 0.5 mg PO DAILY [facility] Last Admin: 01/14/17 08:23 Dose: 0.5 mg Magnesium Hydroxide (Milk Of Magnesium) 30 ml PO DAILYPRN PRN PRN Reason: Constipation Mineral Oil/White Petrolatum (Eucerin Cream) 0 gm TOP BIDPRN PRN PRN Reason: Dry Skin Mometasone Furoate/Formoterol Fumar (Dulera 200 Mcg/5 Mcg Inhaler) 2 puff INH BID-RT [facility] Last Admin: 01/14/17 06:53 Dose: 2 puff Ondansetron HCl (Zofran Odt) 4 mg PO Q6H PRN PRN Reason: Nausea/Vomiting Ondansetron HCl (Zofran) 4 mg IVP Q6H PRN PRN Reason: Nausea/Vomiting Pantoprazole Sodium (Protonix) 40 mg PO DAILY [facility] Last Admin: 01/14/17 08:24 Dose: Not Given Phenol (Chloraseptic [place] 180 Ml Bot) 0 ml PO PRN PRN PRN Reason: Sore Throat Polyethylene Glycol (Miralax) 17 gm PO BID [facility] Last Admin: 01/14/17 08:23 Dose: 17 gm Prednisone (Prednisone) 40 mg PO QA-[facility] Stop: 01/16/17 08:01 Last Admin: 01/14/17 08:23 Dose: 40 mg Senna (Senokot) 2 tab PO HSPRN PRN PRN Reason: Constipation Senna (Senokot) 1 tab PO BID [facility] Last Admin: 01/14/17 08:23 Dose: 1 tab Sodium Chloride ([place] Nasal [place] 0.65%) 0 ml EA NARE QIDPRN PRN PRN Reason: Nasal Congestion Sodium Chloride (Flush - Normal Saline) 10 ml IVF Q12HR [facility] Last Admin: 01/14/17 08:25 Dose: 10 ml Sodium Chloride (Flush - Normal Saline) 10 ml IVF PRN PRN PRN Reason: Saline Flush
[2017-01-14] MEDS ORDERED: Insulin Detemir 100 UNITS/ML 10 UNITS in Pre-Filled Syringe 1 EACH SC SCH (12:15)
[2017-01-14] MEDS: HumaLOG 300 UNITS/3 ML VIAL SC PRN ×3 (12:32→20:40)
--- NOTE | 2017-01-14 17:51 | PRG ---
DATE OF SERVICE: 01/14/2017 SERVICE: Pulmonary Medicine. INTERVAL HISTORY: The patient is doing great from a cardiovascular and respiratory standpoint. She denies any current shortness of breath. She has been walking around the entire complex with her so n without significant dyspnea. She had a good night without any events. PHYSICAL EXAMINATION: VITAL SIGNS: Afebrile, pulse 86, blood pressure 145/67, respirations 16, saturation 100% on 2 lite rs nasal cannula. GENERAL: The patient is awake, alert, in no apparent distress. LUNGS: Improved air entry. There is still prolonged expiratory phase. I heard crackles but no whe ezing or rhonchi. HEART: Normal rate, regular. ABDOMEN: Soft, nontender, nondistended. Bowel sounds positive. MUSCULOSKELETAL: No cyanosis or clubbing. Minimal pitting in the bilateral lower extremities. GENITOURINARY: No Focal catheter in place. NEUROLOGIC: Grossly nonfocal. LABORATORY DATA: Blood sugars ranged from 82-388. Blood cultures x2 are unremarkable. ASSESSMENT: 1. Acute on chronic hypoxic and hypercapnic respiratory failure. 2. Chronic obstructive pulmonary disease with acute exacerbation. 3. Acute on chronic diastolic heart failure. 4. Aortic stenosis. PLAN: We will continue an additional dose of Lasix. Steroids will be discontinued after a total du ration of 5 days. From my perspective, the patient is stable for transition home. She will need to follow up with her employment manager in the outpatient setting (This is Dr. Gurpreet Flores at [facility]). I will continue to follow if she remains in house.
[2017-01-14] MEDS: Insulin Detemir 100 UNITS/ML 10 UNITS in Pre-Filled Syringe 1 EACH SC SCH (20:35)
[2017-01-14] MEDS: Atorvastatin Calcium 40 MG TAB PO SCH (20:36)
[2017-01-15] MEDS: Levothyroxine Sodium 125 MCG TAB PO SCH (05:21)
[2017-01-15] MEDS: Mometasone/Formoterol 120 PUFF INHALER INH SCH (07:17)
[2017-01-15] MEDS: Budesonide 0.5 MG/2 ML NEB INH SCH (07:19)
[2017-01-15] MEDS: Escitalopram Oxalate 10 mg Tablet PO SCH (09:03)
[2017-01-15] MEDS: guaiFENesin ER 600 MG TAB PO SCH (09:03)
[2017-01-15] MEDS: Furosemide 20 MG/2 ML VIAL SLOW IVP SCH (09:03)
[2017-01-15] MEDS: predniSONE 20 MG TAB PO SCH (09:05)
[2017-01-15] MEDS: Digoxin 0.125 MG TAB PO SCH (09:05)
[2017-01-15] MEDS: Lorazepam 0.5 MG TAB PO SCH (09:06)
[2017-01-15] MEDS: Insulin Detemir 100 UNITS/ML 10 UNITS in Pre-Filled Syringe 1 EACH SC SCH (09:08)
[2017-01-15] MEDS: Enoxaparin Sodium 30 MG/0.3 ML SYRINGE SC SCH (09:09)
[2017-01-15] MEDS: Polyethylene Glycol 3350 17 GM Packet PO SCH (09:10)
[2017-01-15] MEDS: Ubidecarenone 50 MG CAP PO SCH (09:11)
[2017-01-15] MEDS: Senokot 8.6 MG TAB PO SCH (09:11)
[2017-01-15 11:19] VITALS: TEMP 98.3
--- NOTE | 2017-01-15 12:08 | PRG ---
DATE OF SERVICE: 01/15/2017 SERVICE: Pulmonary Medicine INTERVAL HISTORY: The patient is doing really well from a respiratory standpoint. She denies concu rrent dyspnea with exertion beyond baseline. She has no cough or fevers, chills, nausea or vomiting . She is able to ambulate the hallways all of yesterday without significant deterioration. She abeber meg has a followup appointment scheduled with her rn ostomy once she leaves the hospital to dis cuss whether or not noninvasive ventilation would be something that she would be a candidate for. Ot herwise, there has been no interval change to her condition, she had no overnight events. PHYSICAL EXAMINATION: VITAL SIGNS: Afebrile, pulse 95, blood pressure 156/83, respirations 18, saturation 100% on 2 liter s nasal cannula. GENERAL: The patient is awake, alert, no apparent distress. LUNGS: Decent air entry which is improved compared to baseline. There is a prolonged expiratory ph ase. I still appreciate some crackles, albeit much improved. HEART: Normal rate, regular. ABDOMEN: Soft, nontender, nondistended. Bowel sounds positive. MUSCULOSKELETAL: No cyanosis or clubbing. No pitting in the bilateral lower extremities today. GENITOURINARY: No Pan. NEUROLOGIC: Grossly nonfocal. LABORATORY DATA: Blood cultures x2 are unremarkable. ASSESSMENT: 1. Acute on chronic hypoxic and hypercapnic respiratory failure. 2. Chronic obstructive pulmonary disease with acute exacerbation. 3. Acute on chronic diastolic heart failure. 4. Aortic stenosis. PLAN: We will continue supportive care including steroids, and nebulized medications. From a respi ratory standpoint, the patient is stable for discharge from the hospital. She has already set up a followup appointment with her primary rn ostomy. I will continue to follow if she remains in ho use, but my suspicion is she will be going home today.
[2017-01-15 12:53] VITALS: BP 176/84
[2017-01-15] MEDS: HumaLOG 300 UNITS/3 ML VIAL SC PRN (13:00)
--- NOTE | 2017-01-15 13:33 | DIS ---
DATE OF ADMISSION: 01/12/2017 DATE OF DISCHARGE: 01/15/2017 PRIMARY CARE PHYSICIAN: [facility]. DISCHARGE DISPOSITION: Home with Home Health. PRIMARY DISCHARGE DIAGNOSES: 1. Acute on chronic obstructive pulmonary disease exacerbation. 2. Acute on chronic respiratory failure with hypoxia and hypercapnia. 3. Acute on chronic diastolic heart failure. 4. Steroid induced hyperglycemia. SECONDARY DISCHARGE DIAGNOSES: Normocytic anemia, carotid stenosis, hypothyroidism, hypertension, d iabetes type 2, coronary artery disease, moderate aortic stenosis, anxiety and depression. PRIMARY PROCEDURE/OPERATION: None. RADIOLOGICAL INVESTIGATION: Chest x-ray on admission showed no acute cardiopulmonary process. CT a ngio negative for pulmonary embolism. SIGNIFICANT LABORATORY DATA: WBC 11.9, hemoglobin 9.8, platelets 182. ABG: pH 7.27, pCO2 88.8, pO 2 was 97.2. Sodium 137, potassium 4.1, chloride 94, BUN 29, creatinine 0.71, calcium 8.7. LFT normal, lipase 13 . Blood culture negative. DISCHARGE MEDICATIONS: ProAir HFA 2 puffs q.8 hourly p.r.n., Lipitor 40 mg p.o. at bedtime, Symbico rt two puff inhalation b.i.d., vitamin D3 1000 units p.o. daily, Plavix 75 mg p.o. daily, digoxin 12 5 mcg p.o. daily, Lexapro 5 mg p.o. daily, Perforomist 20 mcg nebulization b.i.d., Lasix 20 mg p.o. daily, Lantus insulin 9 units subcu at bedtime, Humalog insulin as per sliding scale, DuoNeb q.6 gregor rly p.r.n. as needed, Synthroid 125 mcg p.o. daily, Ativan 0.5 mg p.o. daily, MiraLax 17 grams p.o. b.i.d., Senna 8.6 mg p.o. b.i.d., Spiriva 18 mcg inhalation daily, Coenzyme Q10 100 mg p.o. daily, M ucinex 600 mg twice daily for 15 days, prednisone 40 mg p.o. daily for 3 days and then 20 mg p.o. da luisito for three days, then 10 mg p.o. daily for three days, then stop. CONTRAINDICATIONS: None. CODE STATUS: DNR. ALLERGIES: SULFA DRUGS. INPATIENT ARCHITECT MARINE: Dr. Lacy was following while in hospital. TEST RESULTS PENDING ON DISCHARGE: None. 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 We are arranging home health upon discharge. HOSPITAL COURSE: A 71-year-old female with above-mentioned medical problem who was admitted by me jessica cummings 01/12/2017. Please see my HPI for further details. This patient has underlying chronic obstructi ve pulmonary disease, chronic respiratory failure and chronic diastolic heart failure. She is requi ring home oxygen therapy. She came to the emergency room with increasing shortness of breath. Stephanie ent's shortness of breath gotten rapidly worse. She was admitted to ICU because initially she requi red BiPAP. Subsequently, BiPAP therapy was discontinued and patient was transferred to [facility]. She was optimally treated for COPD. While in hospital, she was also given diuretic therapy. Dr Greg Lacy was following while in hospital. With aggressive therapy for COPD and CHF, patient's condition improved to baseline level. Today, alfreda owen is feeling much better. The patient is seen and examined at bedside today. Plan of care disc ussed with the patient and family member at bedside today. The patient is seen and examined at bedside today. PHYSICAL EXAMINATION: VITAL SIGNS: Currently temperature 98.3, pulse 95, respiratory rate 18, saturation 100% on 2.5 lite rs oxygen, blood pressure 156/83, weight 114 pounds. GENERAL: The patient is currently alert, awake, no acute distress. HEAD: Normocephalic, atraumatic. LUNGS: Clear to auscultation without any obvious rhonchi or rales. CARDIAC: S1 and S2 appears regular. No murmur elicited. No gallop, no rub. ABDOMEN: Soft and benign without any tenderness. EXTREMITIES: No edema. NEUROLOGIC: Nonfocal examination. All review of systems reviewed with her and negative. Pulmonary cleared her for discharge as well. Total time spent on discharge day, 31 minutes.
== END 2017-01-15 13:05 | disposition home health service (06) | DRG 189 ==
LOC: ERS 20:46 → IMCU/EMU 01-12 00:22 → T4-B 01-12 15:12
PROVIDERS: ADMIT Family Medicine; ATTEND Family Medicine
PROC: 5A09357 Assistance with Respiratory Ventilation, Less than 24 Consecutive Hours, Continuous Positive Airway Pressure (ICD-10-PCS; principal; 2017-01-12)
DX: J96.21 Acute and chronic respiratory failure with hypoxia (principal); I13.0 Hypertensive heart and chronic kidney disease with heart failure and stage 1 through stage 4 chronic kidney disease, or unspecified chronic kidney disease; I50.32 Chronic diastolic (congestive) heart failure; I24.8 Other forms of acute ischemic heart disease; J44.1 Chronic obstructive pulmonary disease with (acute) exacerbation; E11.22 Type 2 diabetes mellitus with diabetic chronic kidney disease; Z99.81 Dependence on supplemental oxygen; Z87.891 Personal history of nicotine dependence; J96.22 Acute and chronic respiratory failure with hypercapnia; F41.9 Anxiety disorder, unspecified; F32.9 Major depressive disorder, single episode, unspecified; E11.65 Type 2 diabetes mellitus with hyperglycemia; N18.2 Chronic kidney disease, stage 2 (mild); Z79.4 Long term (current) use of insulin; I25.10 Atherosclerotic heart disease of native coronary artery without angina pectoris; E03.9 Hypothyroidism, unspecified; I35.0 Nonrheumatic aortic (valve) stenosis; K21.9 Gastro-esophageal reflux disease without esophagitis; Z86.73 Personal history of transient ischemic attack (TIA), and cerebral infarction without residual deficits; D64.9 Anemia, unspecified; E55.9 Vitamin D deficiency, unspecified; T38.0X5A Adverse effect of glucocorticoids and synthetic analogues, initial encounter; I65.29 Occlusion and stenosis of unspecified carotid artery; Z88.2 Allergy status to sulfonamides; Z66 Do not resuscitate; Z95.2 Presence of prosthetic heart valve
CPT/HCPCS: 36415; 36416; 71010; 71275; 80053; 82553; 82805; 83605; 83690; 83735; 83880; 84484; 85025; 87040; 93005; 94640; 94644; 94660; 94760; 96365; 96366; 96367; A4216; J0153; J1650; J1815; J1940; J1956; J3475; J7506; J7606; J7611; J7620; J7626

== ENCOUNTER 2017-02-23 22:18 | Inpatient (IN) | payer MEDICARE, MEDICAID ==
[2017-02-23] MEDS ORDERED: methylPREDNISolone Sod Succ/PF 125 MG/2 ML VIAL ONE (22:40)
[2017-02-23] MEDS ORDERED: Water For Inject, Bacteriostat 30 ML ONE (22:40)
[2017-02-23 22:57] LABS: #Basophils 0.1 thou/uL (0.0-0.2); #Eosinphils 0.3 thou/uL (0.0-0.7); #Neutrophils 4.1 thou/uL (1.40-6.50); %Eosinophils 4.1 % (0.0-10.0); %Lymphocytes 26.9 % (21.0-51.0); %Monocytes 13.5 % (0.0-10.0); Hematocrit 37.5 % (36.0-47.0); Mean Platelet Volume 7.9 fL (7.4-10.4); Red Blood Cell (RBC) Count 3.84 mill/uL (4.20-5.40); White Blood Cell (WBC) Count 7.5 thou/uL (4.8-10.8)
--- NOTE | 2017-02-23 23:01 | RAD ---
CHEST ONE VIEW 02/23/17 HISTORY: Dyspnea. COMPARISON: 01/11/17 FINDINGS: The cardiac silhouette and pulmonary vasculature are unremarkable. Mediastinum is midline with aortic calcification and a stent at the aortic valve. Lungs remain hyperinflated. There is no lobar consoli dation or evidence of pneumothorax. Old right rib fractures are again demonstrated. monitor and storage bin tender l alia overlie the chest. IMPRESSION: Chronic type findings are stable. No active cardiopulmonary abnormalities are demonstrated. POS: SHANTELL
[2017-02-23 23:10] LABS: Digoxin 0.49 ng/mL (0.8-2.0)
[2017-02-23 23:18] LABS: ALT (SGPT) 17 U/L (8-55); AST (SGOT) 24 U/L (5-34); Alkaline Phosphatase 72 U/L (40-150); BUN (Urea Nitrogen) 14 mg/dL (9.8-20.1); Bilirubin, Total 0.2 mg/dL (0.2-1.2); Calc. Creatinine Clearance 0 mL/min (70-130); Calcium 9.8 mg/dL (7.8-10.44); Estimated GFR-MDRD 71; Protein, Total 7.3 g/dL (6.0-8.3)
[2017-02-23 23:27] LABS: Anion Gap 13 mmol/L (10-20); Carbon Dioxide 37 mmol/L (23-31); Chloride 92 mmol/L (98-107)
[2017-02-23 23:45] LABS: Troponin I Less than 0.010 ng/mL (< 0.028)
[2017-02-24] MEDS ORDERED: Acetaminophen 500 MG TAB ONE (00:23)
[2017-02-24] MEDS ORDERED: Acetaminophen 325 MG TAB PO PRN ×2 (02:11→02:59)
[2017-02-24] MEDS ORDERED: Ondansetron HCl/PF 4 MG/2 ML Vial IVP PRN (02:11)
[2017-02-24] MEDS ORDERED: Ondansetron ODT 4 MG TAB SL PRN (02:11)
[2017-02-24 02:28] VITALS: BMI 20.7
[2017-02-24] MEDS ORDERED: Acetaminophen 650 MG Suppository PR PRN (02:59)
[2017-02-24] MEDS ORDERED: Dextrose 50% Abboject 50 ML SYRINGE SLOW IVP PRN (03:03)
[2017-02-24] MEDS ORDERED: Dextrose 5% in Water 1,000 ML IV PRN (03:03)
--- NOTE | 2017-02-24 04:25 | HP ---
PRIMARY CARE PHYSICIAN: Dr. Aramis Harris at [facility]. CHIEF COMPLAINT: Shortness of breath. HISTORY OF PRESENT ILLNESS: Ms. Arroyo is a pleasant 71-year-old lady who was seen at [facility] on 02/24/2017. She reports that she was sitting on couch yesterday, when she developed shortness of breath. She als o reports bout of coughing. She took 3/4 of Ativan tablet last night. She usually takes only half a tablet. In terms of shortness of breath, she reports that it is worse with exertion. She denies any orthopne a or paroxysmal nocturnal dyspnea. She reports feeling slightly better after coming to the emergency room. She was hospitalized at [facility] in 12/2016 for COPD exacerbation. She denies any fevers or chills. She denies any chest pain. In the emergency room, she was found to be hypoxic while using her usual home oxygen dose of 3 liters per minute. She was therefore referred for admission. REVIEW OF SYSTEMS: The following complete review of systems was negative, unless otherwise mentioned in the HPI or below: CONSTITUTIONAL: Weight loss or gain, sense of well-being, ability to conduct usual activities, exerc ise tolerance. SKIN/BREAST: Rash, itching, changes in hair growth or loss, nail changes, breast lumps, tenderness, swelling, nipple discharge. EYES: Vision, double vision, tearing, blind spots, pain. ENT/MOUTH: Headaches (location, time of onset, duration, precipitating factors), vertigo, lightheade dness, injury. Vision, double vision, tearing, blind spots, pain, nose bleeding, colds, obstruction, discharge, dental difficulties, gingival bleeding, dentures, neck stiffness, pain, tenderness, masses in thyroid or other areas. CARDIOVASCULAR: Precordial pain, substernal distress, palpitations, syncope, dyspnea on exertion, or thopnea, nocturnal paroxysmal dyspnea, edema, cyanosis, hypertension, heart murmurs, varicosities, ph lebitis, claudication. RESPIRATORY: Pain, shortness of breath, wheezing, stridor, cough, hemoptysis, fever or night sweats. GASTROINTESTINAL: Poor appetite, dysphagia, indigestion, abdominal pain, heartburn, eructation, naus ea, vomiting, hematemesis, jaundice, constipation, or diarrhea, abnormal stools (sherice-colored, tarry, bloody, greasy, foul smelling), flatulence, hemorrhoids, recent changes in bowel habits. GENITOURINARY: Urgency, frequency, dysuria, nocturia, hematuria, polyuria, oliguria, unusual (or rodger nge in) color of urine, stones, hesitancy, change in size of stream, dribbling, acute retention or in continence, libido, potency. MUSCULOSKELETAL: Pain, swelling, redness or heat of muscles or joints, limitation, of motion, muscul ar weakness, atrophy, cramps. NEUROLOGIC/PSYCHIATRIC: Convulsions, paralyses, tremor, incoordination, parasthesias, difficulties w ith memory of speech, sensory or motor disturbances, or muscular coordination (ataxia, tremor), emoti onal problems, anxiety, depression, previous psychiatric care, unusual perceptions, hallucinations. ALLERGY/IMMUNOLOGIC: Skin rash, anemia, bleeding tendency, polydipsia, polyuria, intolerance to heat or cold. PAST MEDICAL HISTORY: Significant for chronic respiratory failure requiring home oxygen, COPD, chron ic diastolic heart failure, coronary artery disease, aortic valve stenosis, diabetes mellitus type 2, hypertension, hypothyroidism, chronic normocytic anemia, gastroesophageal reflux disease, chronic ki dney disease stage 2, diverticulosis, TIA. PAST SURGICAL HISTORY: Significant for cardiac catheterization, tubal ligation, abdominal surgery an d carpal tunnel repair. PSYCHIATRIC HISTORY: Significant for anxiety and depression. FAMILY HISTORY: No family history of premature coronary artery disease. SOCIAL HISTORY: Patient is an ex-smoker. She denies any current tobacco, alcohol, or recreational d rug use. ALLERGIES: She is allergic to SULFA. CURRENT HOME MEDICATIONS: These include ProAir HFA 2 puffs every 8 hours as needed, Lipitor 40 mg at bedtime, Symbicort 2 puffs inhalation 2 times a day, vitamin D3 1000 units daily, Plavix 75 mg daily , digoxin 125 mcg daily, Lexapro 5 mg daily, Perforomist 20 mcg nebulizer 2 times a day, Lasix 20 mg daily, Lantus insulin 9 units at bedtime, Humalog insulin per sliding scale, DuoNeb q.6 hours as need ed, Synthroid 125 mcg daily, Ativan 0.5 mg daily, MiraLax 17 grams 2 times a day, Senna 8.6 mg 2 time s a day, Spiriva 18 mcg inhalation daily, Coenzyme Q10 100 mg daily. CODE STATUS: I discussed her code status. She is DNR. PHYSICAL EXAMINATION: GENERAL: Ms. Arroyo is awake and alert, not in acute distress. VITAL SIGNS: Blood pressure is 118/52, pulse is 95. She is afebrile. She is breathing at rate of 2 0 and saturating 94% on 3 liters of oxygen. EYES: No scleral icterus, no conjunctival pallor. ENT: Moist mucosal membranes, no oropharyngeal erythema or exudates. NECK: Supple, nontender, normal range of movement. Trachea is midline. RESPIRATORY: Accessory muscles of breathing are mildly active. Chest wall movements are symmetric b ilaterally. LUNGS: Examination reveals markedly diminished breath sounds over both lungs. CARDIOVASCULAR: S1 and S2 are heard, regular. Peripheral pulses palpable. No carotid bruit, no per icardial rub. ABDOMEN: Soft, nontender, bowel sounds heard, no hepatomegaly, no splenomegaly. NEUROLOGIC: Cranial nerves II-XII intact. Deep tendon reflexes 2+. MUSCULOSKELETAL: Power is 5/5 in all 4 extremities. Normal range of movement at all major extremity joints. LYMPHATIC: No cervical lymphadenopathy. SKIN: No rashes or subcutaneous nodules. PSYCHIATRIC: Normal mood, normal affect, patient is oriented to person, place, and time. DATABASE: Ms. Arroyo's labs and investigations were reviewed. I reviewed her electrocardiogram, wh ich shows normal sinus rhythm, no ST changes to suggest an acute coronary syndrome. I also reviewed her chest x-ray, which does not show any pulmonary infiltrates. She has hyperinflated lungs. Labora tor investigations showed normal white count, normocytic anemia with hemoglobin 11.7, last one hemog lobin 9.8 on 01/13/2017, normal platelet count, normal sodium, normal potassium, elevated carbon diox robyn level of 37, normal liver function tests and normal troponin I. CK is elevated at 228. Digoxin level is subtherapeutic at 0.49. ASSESSMENT AND PLAN: Mr. Arroyo she is a pleasant 71-year-old lady who was seen at [facility] on 02/24/2017. Her problem list includes: 1. Hypoxia: Most likely secondary to chronic obstructive pulmonary disease. Patient will be admitt ed to the hospital for further management. 2. Acute on chronic respiratory failure: Likely due to COPD. Patient does not appear to be having a congestive heart failure exacerbation at this time. 3. Chronic obstructive pulmonary disease exacerbation: Continue oxygen, steroids, and bronchodilato rs. I am not starting the patient on antibiotics at this time. 4. Subtherapeutic digoxin level: Increased digoxin dose. 5. Coronary artery disease. Appears stable. 6. Dyslipidemia: Continue statins. 7. Diabetes mellitus. Continue home medications, start Accu-Cheks and insulin sliding scale. Many thanks for allowing me to participate in your patient's care. Please feel free to contact me wi th any questions or concerns. LEVEL OF RISK: High. LEVEL OF COMPLEXITY: High.
[2017-02-24 05:18] LABS: #Lymphocytes 0.3 thou/uL (1.20-3.40); #Monocytes 0.1 thou/uL (0.11-0.59); #Neutrophils 7.6 thou/uL (1.40-6.50); %Eosinophils 0.2 % (0.0-10.0); %Lymphocytes 4.1 % (21.0-51.0); %Monocytes 0.7 % (0.0-10.0); Hematocrit 31.9 % (36.0-47.0); Red Blood Cell (RBC) Count 3.29 mill/uL (4.20-5.40); White Blood Cell (WBC) Count 8.1 thou/uL (4.8-10.8)
[2017-02-24 05:36] LABS: BUN (Urea Nitrogen) 23 mg/dL (9.8-20.1); Calc. Creatinine Clearance 55 mL/min (70-130); Calcium 9.1 mg/dL (7.8-10.44); Estimated GFR-MDRD 75
[2017-02-24 05:46] LABS: Anion Gap 11 mmol/L (10-20); Carbon Dioxide 36 mmol/L (23-31); Chloride 92 mmol/L (98-107)
[2017-02-24] MEDS: Levothyroxine Sodium 125 MCG TAB PO SCH (06:21)
[2017-02-24] MEDS: HumaLOG 300 UNITS/3 ML VIAL SC PRN ×3 (06:22→17:30)
[2017-02-24] MEDS: Enoxaparin Sodium 40 MG/0.4 ML SYRINGE SC SCH (08:38)
[2017-02-24] MEDS: Ubidecarenone 50 MG CAP PO SCH (08:38)
[2017-02-24] MEDS: Clopidogrel Bisulfate 75 MG TAB PO SCH (08:38)
[2017-02-24] MEDS: Escitalopram Oxalate 10 mg Tablet PO SCH (08:38)
[2017-02-24] MEDS: Lorazepam 0.5 MG TAB PO SCH (08:39)
[2017-02-24] MEDS: Furosemide 20 MG TAB PO SCH (08:39)
[2017-02-24] MEDS: Digoxin 0.125 MG TAB PO SCH (08:39)
--- NOTE | 2017-02-24 11:07 | PDOC.PN ---
- Subjective Encounter Start Date: 02/24/17 Encounter Start Time: 10:15 Subjective: breathing better, no chest pain - Objective Resuscitation Status: Resuscitation Status DNR:Do Not Resuscitate MAR Reviewed: Yes Vital Signs & Weight: Vital Signs (12 hours) Temp Pulse Resp BP Pulse Ox 02/24/17 08:39 95 02/24/17 08:10 92 L 02/24/17 08:09 97 16 02/24/17 07:49 98.3 F 95 18 119/63 98 02/24/17 04:00 98.1 F 82 18 112/53 L 92 L 02/24/17 02:59 94 L 02/24/17 02:30 98.3 F 95 20 94 L 02/24/17 02:00 98.3 F 95 20 118/52 L 94 L Weight Weight 110 lb 0.171 oz Result Diagrams: 02/24/17 04:47 02/24/17 04:47 Phys Exam - Physical Examination HEENT: PERRLA, moist MMs Neck: no JVD, supple Respiratory: no wheezing, no rales rhonchi+ Cardiovascular: RRR, no significant murmur Gastrointestinal: soft, non-tender, positive bowel sounds Musculoskeletal: no edema, pulses present Neurological: non-focal, moves all 4 limbs Psychiatric: A&O x 3 Dx/Plan (1) COPD exacerbation Code(s): J44.1 - CHRONIC OBSTRUCTIVE PULMONARY DISEASE W (ACUTE) EXACERBATION Status: Acute Comment: Improved (2) Acute and chronic respiratory failure with hypoxia Code(s): J96.21 - ACUTE AND CHRONIC RESPIRATORY FAILURE WITH HYPOXIA Status: Acute Comment: Improved (3) DM type 2 (diabetes mellitus, type 2) Status: Chronic Qualifiers: Diabetes mellitus complication status: with unspecified complications 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 transplanted heart: [place] heart Associated angina: without angina Qualified Code(s): I25.10 - Atherosclerotic heart disease of [place] coronary artery without angina pectoris (7) Chronic diastolic (congestive) heart failure Code(s): I50.32 - CHRONIC DIASTOLIC (CONGESTIVE) HEART FAILURE Status: Chronic (8) Hypertension Code(s): I10 - ESSENTIAL (PRIMARY) HYPERTENSION Status: Chronic Qualifiers: Hypertension type: essential hypertension Qualified Code(s): I10 - Essential (primary) hypertension (9) Hypothyroidism Code(s): E03.9 - HYPOTHYROIDISM, UNSPECIFIED Status: Chronic Qualifiers: Hypothyroidism type: unspecified Qualified Code(s): E03.9 - Hypothyroidism , unspecified - Plan is on solumedrol and nebs -: sees at [facility] for pulm, is on 3lts home oxygen -: responding well to steroids and neb treatments -: to amb in hallway with oxygen -: dc plan in 24-36hrs, watch for fingerstick glucose with steroids * . Review of Systems - Medications/Allergies Allergies/Adverse Reactions: Allergies Allergy/AdvReac Type Severity Reaction Status Date / Time Sulfa (Sulfonamide Allergy itching Verified 03/27/15 00:33 Antibiotics) Medications: Current Medications Acetaminophen (Tylenol) 650 mg PO Q4H PRN PRN Reason: Headache/Fever or Pain Acetaminophen (Tylenol) 650 mg [place] Q4H PRN PRN Reason: Headache/Fever or Pain Albuterol/Ipratropium (Duoneb) 3 ml NEB Q4H PRN PRN Reason: SOB &/or Wheezing Albuterol/Ipratropium (Duoneb) 3 ml NEB [id number] [facility] Last Admin: 02/24/17 08:09 Dose: 3 ml Atorvastatin Calcium (Lipitor) 40 mg PO HS [facility] Cholecalciferol (Vitamin D3) 1,000 units PO DAILY [facility] Last Admin: 02/24/17 08:39 Dose: 1,000 units Clopidogrel Bisulfate (Plavix) 75 mg PO DAILY [facility] Last Admin: 02/24/17 08:38 Dose: 75 mg Coenzyme Q10 (Coenzyme Q10) 100 mg PO DAILY [facility] Last Admin: 02/24/17 08:38 Dose: 100 mg Dextrose/Water (Dextrose 50%) 25 gm SLOW IVP PRN PRN PRN Reason: Hypoglycemia Digoxin (Lanoxin) 0.1875 mg PO DAILY [facility] Last Admin: 02/24/17 08:39 Dose: 0.1875 mg Enoxaparin Sodium (Lovenox) 40 mg SC 0900 [facility] Last Admin: 02/24/17 08:38 Dose: 40 mg Escitalopram Oxalate (Lexapro) 5 mg PO DAILY [facility] Last Admin: 02/24/17 08:38 Dose: 5 mg Furosemide (Lasix) 20 mg PO DAILY [facility] Last Admin: 02/24/17 08:39 Dose: 20 mg Glucagon (Glucagon) 1 mg IM PRN PRN PRN Reason: Hypoglycemia Dextrose/Water (D5w) 1,000 mls @ 0 mls/hr IV .Q0M PRN; As Directed PRN Reason: Hypoglycemia Insulin Detemir 7 units/ (Miscellaneous Medication) 0.07 mls @ 0 mls/hr SC HS [facility] Insulin Human Lispro (Humalog) 0 units SC .MILD SLIDING SCALE PRN PRN Reason: Mild Correctional Scale Last Admin: 02/24/17 06:22 Dose: 6 unit Levothyroxine Sodium (Synthroid) 125 mcg PO 0600 [facility] Last Admin: 02/24/17 06:21 Dose: 125 mcg Lorazepam (Ativan) 0.5 mg PO DAILY [facility] Last Admin: 02/24/17 08:39 Dose: 0.5 mg Methylprednisolone Sodium Succinate (Solu-Medrol) 40 mg IVP Q6HR [facility] Last Admin: 02/24/17 06:22 Dose: 40 mg Ondansetron HCl (Zofran) 4 mg IVP Q6H PRN PRN Reason: Nausea/Vomiting Stop: 02/24/17 13:18 Ondansetron HCl (Zofran Odt) 4 mg SL Q6H PRN PRN Reason: Nausea/Vomiting Stop: 02/24/17 13:18 Polyethylene Glycol (Miralax) 17 gm PO HS [facility] Senna (Senokot) 1 tab PO [facility]
[2017-02-24] MEDS: Senokot 8.6 MG TAB PO SCH (19:48)
[2017-02-24] MEDS: Polyethylene Glycol 3350 17 GM Packet PO SCH (19:48)
[2017-02-24] MEDS: Atorvastatin Calcium 40 MG TAB PO SCH (19:48)
[2017-02-24] MEDS ORDERED: Lorazepam 0.5 MG TAB PO SCH (20:45)
[2017-02-24] MEDS ORDERED: Oxymetazoline HCl 0.05% ( 15 ML ) NASAL PRN (20:47)
[2017-02-24] MEDS: Insulin Detemir 100 UNITS/ML 15 UNITS in Pre-Filled Syringe 1 EACH SC SCH (20:52)
[2017-02-24] MEDS ORDERED: INSULIN GLARGINE HUM REC ANLOG 7 UNIT SQ SCH (21:00)
[2017-02-24] MEDS ORDERED: Insulin Detemir 100 UNITS/ML 7 UNITS in Pre-Filled Syringe 1 EACH SC SCH (21:00)
[2017-02-25] MEDS: HumaLOG 300 UNITS/3 ML VIAL SC PRN ×2 (05:58→12:04)
[2017-02-25] MEDS: Levothyroxine Sodium 125 MCG TAB PO SCH (05:58)
[2017-02-25 06:06] LABS: #Lymphocytes 0.9 thou/uL (1.20-3.40); #Monocytes 1.2 thou/uL (0.11-0.59); #Neutrophils 10.7 thou/uL (1.40-6.50); %Eosinophils 0.1 % (0.0-10.0); %Lymphocytes 7.3 % (21.0-51.0); %Monocytes 9.3 % (0.0-10.0); Hematocrit 28.7 % (36.0-47.0); Mean Platelet Volume 8.4 fL (7.4-10.4); Red Blood Cell (RBC) Count 2.98 mill/uL (4.20-5.40); White Blood Cell (WBC) Count 12.9 thou/uL (4.8-10.8)
[2017-02-25 06:30] LABS: BUN (Urea Nitrogen) 21 mg/dL (9.8-20.1); Calc. Creatinine Clearance 59 mL/min (70-130); Calcium 8.6 mg/dL (7.8-10.44); Estimated GFR-MDRD 82
[2017-02-25 06:39] LABS: Anion Gap 6 mmol/L (10-20); Chloride 94 mmol/L (98-107)
[2017-02-25 06:43] LABS: Carbon Dioxide 42 mmol/L (23-31)
[2017-02-25] MEDS: Ubidecarenone 50 MG CAP PO SCH (08:17)
[2017-02-25] MEDS: Digoxin 0.125 MG TAB PO SCH (08:17)
[2017-02-25] MEDS: Clopidogrel Bisulfate 75 MG TAB PO SCH (08:22)
[2017-02-25] MEDS: Lorazepam 0.5 MG TAB PO SCH ×2 (08:22→20:11)
[2017-02-25] MEDS: predniSONE 5 MG TAB PO SCH (08:23)
[2017-02-25] MEDS: Escitalopram Oxalate 10 mg Tablet PO SCH (08:23)
[2017-02-25] MEDS: Furosemide 20 MG TAB PO SCH (08:24)
[2017-02-25] MEDS: Enoxaparin Sodium 40 MG/0.4 ML SYRINGE SC SCH (08:24)
[2017-02-25] MEDS ORDERED: Digoxin 0.125 MG TAB PO SCH (09:00)
[2017-02-25] MEDS: Insulin Detemir 100 UNITS/ML 15 UNITS in Pre-Filled Syringe 1 EACH SC SCH ×3 (09:59→21:32)
--- NOTE | 2017-02-25 10:05 | PDOC.PN ---
- Subjective Encounter Start Date: 02/25/17 Encounter Start Time: 09:25 Subjective: has diff bringing up sputum -: no chest pain - Objective Resuscitation Status: Resuscitation Status DNR:Do Not Resuscitate MAR Reviewed: Yes Vital Signs & Weight: Vital Signs (12 hours) Temp Pulse Resp BP Pulse Ox 02/25/17 08:17 112 H 02/25/17 07:57 98.3 F 100 20 155/64 H 100 02/25/17 07:22 98 02/25/17 07:20 95 12 02/25/17 00:57 99 20 95 Weight Weight 110 lb 0.171 oz I&O: 02/24/17 02/25/17 02/26/17 06:59 06:59 06:59 Intake Total 900 Balance 900 Result Diagrams: 02/25/17 05:28 02/25/17 05:28 Additional Labs: Accuchecks 02/24/17 02/24/17 02/24/17 19:37 16:16 11:07 POC Glucose 389 H 409 H 328 H Phys Exam - Physical Examination HEENT: PERRLA, sclera anicteric Neck: no JVD, supple Respiratory: no wheezing, no rales rhonchi+ Cardiovascular: RRR, no significant murmur Gastrointestinal: soft, non-tender, positive bowel sounds Musculoskeletal: no edema, pulses present Neurological: non-focal, moves all 4 limbs Psychiatric: A&O x 3 Dx/Plan (1) COPD exacerbation Code(s): J44.1 - CHRONIC OBSTRUCTIVE PULMONARY DISEASE W (ACUTE) EXACERBATION Status: Acute Comment: Improved (2) Acute and chronic respiratory failure with hypoxia Code(s): J96.21 - ACUTE AND CHRONIC RESPIRATORY FAILURE WITH HYPOXIA Status: Acute Comment: Improved (3) DM type 2 (diabetes mellitus, type 2) Status: Chronic Qualifiers: Diabetes mellitus complication status: with hyperglycemia Diabetes mellitus rn long term care insulin use: with [facility] use Qualified Code(s): E11.65 - Type 2 diabetes mellitus with hyperglycemia; Z79.4 - care home (current) use of insulin; Z79.4 - 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 transplanted heart: [place] heart Associated angina: without angina Qualified Code(s): I25.10 - Atherosclerotic heart disease of [place] coronary artery without angina pectoris (7) Chronic diastolic (congestive) heart failure Code(s): I50.32 - CHRONIC DIASTOLIC (CONGESTIVE) HEART FAILURE Status: Chronic (8) Hypertension Code(s): I10 - ESSENTIAL (PRIMARY) HYPERTENSION Status: Chronic Qualifiers: Hypertension type: essential hypertension Qualified Code(s): I10 - Essential (primary) hypertension (9) Hypothyroidism Code(s): E03.9 - HYPOTHYROIDISM, UNSPECIFIED Status: Chronic Qualifiers: Hypothyroidism type: unspecified Qualified Code(s): E03.9 - Hypothyroidism , unspecified - Plan is on levemir 15 u bid, dm uncontrolled due to steroids -: is on rapid taper of steroids, add mucinex and tessalon -: to amb in hallway as tolerated, gentle iv fluids to help bring up sputum -: If pt is tachycardic may switch her nebs to xopenex -: on nasal canula this am and spo2 is ok * . Review of Systems - Medications/Allergies Allergies/Adverse Reactions: Allergies Allergy/AdvReac Type Severity Reaction Status Date / Time Sulfa (Sulfonamide Allergy itching Verified 03/27/15 00:33 Antibiotics) Medications: Current Medications Acetaminophen (Tylenol) 650 mg PO Q4H PRN PRN Reason: Headache/Fever or Pain Acetaminophen (Tylenol) 650 mg [place] Q4H PRN PRN Reason: Headache/Fever or Pain Albuterol/Ipratropium (Duoneb) 3 ml NEB Q4H PRN PRN Reason: SOB &/or Wheezing Albuterol/Ipratropium (Duoneb) 3 ml NEB [id number] Last Admin: 02/25/17 07:20 Dose: 3 ml Atorvastatin Calcium (Lipitor) 40 mg PO HS [facility] Last Admin: 02/24/17 19:48 Dose: 40 mg Benzonatate (Tessalon) 100 mg PO TID [facility] Cholecalciferol (Vitamin D3) 1,000 units PO DAILY [facility] Last Admin: 02/25/17 08:22 Dose: 1,000 units Clopidogrel Bisulfate (Plavix) 75 mg PO DAILY [facility] Last Admin: 02/25/17 08:22 Dose: 75 mg Coenzyme Q10 (Coenzyme Q10) 100 mg PO DAILY [facility] Last Admin: 02/25/17 08:17 Dose: 100 mg Dextrose/Water (Dextrose 50%) 25 gm SLOW IVP PRN PRN PRN Reason: Hypoglycemia Digoxin (Lanoxin) 0.1875 mg PO DAILY [facility] Last Admin: 02/25/17 08:17 Dose: 0.1875 mg Enoxaparin Sodium (Lovenox) 40 mg SC 0900 [facility] Last Admin: 02/25/17 08:24 Dose: 40 mg Escitalopram Oxalate (Lexapro) 5 mg PO DAILY [facility] Last Admin: 02/25/17 08:23 Dose: 5 mg Furosemide (Lasix) 20 mg PO DAILY [facility] Last Admin: 02/25/17 08:24 Dose: 20 mg Glucagon (Glucagon) 1 mg IM PRN PRN PRN Reason: Hypoglycemia Guaifenesin (Mucinex) 600 mg PO Q12HR [facility] Dextrose/Water (D5w) 1,000 mls @ 0 mls/hr IV .Q0M PRN; As Directed PRN Reason: Hypoglycemia Insulin Detemir 15 units/ (Miscellaneous Medication) 0.15 mls @ 0 mls/hr SC BID [facility] Last Admin: 02/25/17 09:59 Dose: 0.15 mls Sodium Chloride (Normal Saline 0.9%) 1,000 mls @ 50 mls/hr IV .Q20H [facility] Insulin Human Lispro (Humalog) 0 units SC .MILD SLIDING SCALE PRN PRN Reason: Mild Correctional Scale Last Admin: 02/25/17 05:58 Dose: 6 unit Levothyroxine Sodium (Synthroid) 125 mcg PO 0600 [facility] Last Admin: 02/25/17 05:58 Dose: 125 mcg Lorazepam (Ativan) 0.5 mg PO DAILY [facility] Last Admin: 02/25/17 08:22 Dose: Not Given Oxymetazoline HCl (Oxymetazoline Hcl) 0 sprays NASAL ONE PRN PRN Reason: Nasal Congestion Stop: 02/27/17 20:48 Polyethylene Glycol (Miralax) 17 gm PO [facility] Last Admin: 02/24/17 19:48 Dose: 17 gm Prednisone (Prednisone) 5 mg PO [facility] Last Admin: 02/25/17 08:23 Dose: 5 mg Senna (Senokot) 1 tab PO [facility] Last Admin: 02/24/17 19:48 Dose: 1 tab
[2017-02-25] MEDS ORDERED: Mag-Al Plus 1200 MG/1200 MG/120 MG/30 ML UDCUP PO PRN (10:13)
[2017-02-25] MEDS ORDERED: Sodium Chloride 0.9% 1,000 ML IV SCH (10:15)
[2017-02-25] MEDS: Benzonatate 100 MG CAP PO SCH ×2 (15:45→20:11)
[2017-02-25] MEDS: Senokot 8.6 MG TAB PO SCH (20:11)
[2017-02-25] MEDS: Atorvastatin Calcium 40 MG TAB PO SCH (20:11)
[2017-02-25] MEDS: Famotidine 20 MG TAB PO SCH (20:11)
[2017-02-25] MEDS: guaiFENesin ER 600 MG TAB PO SCH (20:11)
[2017-02-25] MEDS: Polyethylene Glycol 3350 17 GM Packet PO SCH (20:12)
[2017-02-26] MEDS ORDERED: Benzonatate 100 MG CAP PO SCH ×2 (02:15→09:00)
[2017-02-26] MEDS ORDERED: hydrOXYzine 25 MG TAB PO PRN (04:33)
[2017-02-26] MEDS: Levothyroxine Sodium 125 MCG TAB PO SCH (05:13)
[2017-02-26] MEDS ORDERED: Ondansetron HCl/PF 4 MG/2 ML Vial IVP PRN (07:26)
[2017-02-26] MEDS ORDERED: Milk Of Magnesia 30 ML UDCUP PO PRN (07:26)
[2017-02-26] MEDS ORDERED: Sodium Chloride 0.65% Nasal 44 ML BOT EA NARE PRN (07:26)
[2017-02-26] MEDS ORDERED: Ondansetron ODT 4 MG TAB PO PRN (07:26)
[2017-02-26] MEDS ORDERED: Chloraseptic Spray 180 ml Bottle PO PRN (07:26)
[2017-02-26] MEDS ORDERED: Eucerin (Mineral Oil/Petrolatum,White) 30 gm Jar TOP PRN (07:26)
[2017-02-26] MEDS ORDERED: Mag-Al 1200 mg/1200 mg/30 ML UDCUP PO PRN (07:26)
[2017-02-26] MEDS ORDERED: Loratadine 10 MG TAB PO PRN (07:26)
[2017-02-26] MEDS ORDERED: Artificial Tears 18 DROP/0.9 ML EA EYE PRN (07:26)
[2017-02-26] MEDS ORDERED: hydrALAZINE 20 MG/ML VIAL SLOW IVP PRN (07:26)
[2017-02-26] MEDS: Clopidogrel Bisulfate 75 MG TAB PO SCH (08:26)
[2017-02-26] MEDS: Famotidine 20 MG TAB PO SCH (08:26)
[2017-02-26] MEDS: predniSONE 5 MG TAB PO SCH (08:26)
[2017-02-26] MEDS: Digoxin 0.125 MG TAB PO SCH (08:32)
[2017-02-26] MEDS: Escitalopram Oxalate 10 mg Tablet PO SCH (08:34)
[2017-02-26] MEDS: guaiFENesin ER 600 MG TAB PO SCH (08:36)
[2017-02-26] MEDS: Enoxaparin Sodium 40 MG/0.4 ML SYRINGE SC SCH (08:37)
[2017-02-26] MEDS: Lorazepam 0.5 MG TAB PO SCH ×2 (08:40→12:26)
[2017-02-26] MEDS: Ubidecarenone 50 MG CAP PO SCH (08:41)
[2017-02-26] MEDS: Insulin Detemir 100 UNITS/ML 15 UNITS in Pre-Filled Syringe 1 EACH SC SCH (09:58)
[2017-02-26 11:41] LABS: #Eosinphils 0.2 thou/uL (0.0-0.7); #Lymphocytes 0.6 thou/uL (1.20-3.40); #Monocytes 0.7 thou/uL (0.11-0.59); #Neutrophils 6.6 thou/uL (1.40-6.50); %Basophils 0.5 % (0.0-1.0); %Eosinophils 2.8 % (0.0-10.0); %Monocytes 8.1 % (0.0-10.0); Hematocrit 37.6 % (36.0-47.0); Mean Platelet Volume 8.4 fL (7.4-10.4); Red Blood Cell (RBC) Count 3.81 mill/uL (4.20-5.40); White Blood Cell (WBC) Count 8.1 thou/uL (4.8-10.8)
[2017-02-26 12:05] LABS: ALT (SGPT) 17 U/L (8-55); AST (SGOT) 20 U/L (5-34); Alkaline Phosphatase 63 U/L (40-150); BUN (Urea Nitrogen) 14 mg/dL (9.8-20.1); Bilirubin, Total 0.2 mg/dL (0.2-1.2); Calc. Creatinine Clearance 57 mL/min (70-130); Calcium 8.7 mg/dL (7.8-10.44); Estimated GFR-MDRD 79; Globulin 2.7 g/dL (2.4-3.5); Protein, Total 6.4 g/dL (6.0-8.3)
[2017-02-26 12:15] LABS: Chloride 95 mmol/L (98-107)
[2017-02-26 12:18] LABS: Anion Gap 10 mmol/L (10-20); Carbon Dioxide 39 mmol/L (23-31)
[2017-02-26] MEDS: HumaLOG 300 UNITS/3 ML VIAL SC PRN (12:27)
[2017-02-26 12:46] VITALS: BP 137/73; TEMP 98.2
--- NOTE | 2017-02-26 15:14 | DIS ---
PRIMARY CARE PHYSICIAN: [facility]. DATE OF ADMISSION: 02/24/2017 DATE OF DISCHARGE: 02/26/2017 DISCHARGE DISPOSITION: Home. PRIMARY DISCHARGE DIAGNOSES: 1. Acute on chronic respiratory failure with hypoxia and hypercapnia. 2. Chronic obstructive pulmonary disease exacerbation. 3. Hypoglycemia associated with diabetes type 2. SECONDARY DISCHARGE DIAGNOSES: Normocytic anemia, hypothyroidism, hypertension , diabetes type 2, chronic diastolic heart failure, coronary artery disease, moderate aortic stenosis, chronic obstructive pulmonary disease, anxiety and depression, normocytic anemia, chronic respiratory failure with hypoxia. PRIMARY PROCEDURE/OPERATION: None. RADIOLOGICAL INVESTIGATION: Chest x-ray on admission showed chronic changes without any acute process. SIGNIFICANT LABORATORY DATA: WBC 8.1, hemoglobin 11.5, platelet 197. Sodium 139, potassium 4.8, BUN 14, creatinine 0.73, calcium 8.7, glucose 218. LFT normal. Digoxin level 0.49. Blood culture negative. C. diff was negative. DISCHARGE MEDICATIONS: ProAir HFA 2 puffs q.8 hourly p.r.n., Lipitor 40 mg p.o. at bedtime, Tessalon 200 mg p.o. t.i.d. p.r.n., vitamin D3 1000 units p.o. daily, Plavix 75 mg p.o. daily, digoxin 125 mcg p.o. daily, Lexapro 5 mg p.o. daily, Lasix 20 mg p.o. daily, Mucinex 600 mg twice daily, Lantus insulin 7 units subcutaneous at bedtime, Humalog insulin as per sliding scale with meals, Synthroid 125 mcg p.o. daily, Ativan 0.5 mg p.o. daily, MiraLax 17 grams p.o. daily, prednisone 5 mg p.o. daily, Senokot 1 tablet p.o. at bedtime, Spiriva 2 puffs inhalation daily, Coenzyme Q10 100 mg p.o. daily. CONTRAINDICATIONS: None. CODE STATUS: FULL CODE. INPATIENT CONSULTANTS: None. ALLERGIES: SULFA DRUGS. DISCHARGE PLAN: Post hospital, the patient will follow up with primary care physician. HOSPITAL COURSE: A 71-year-old female with above-mentioned medical problem, who was admitted by Dr. Wright on 02/24/2017. Please see his H&P for further details. Patient is following Dr. Aramis Harris at [facility]. The patient was admitted for increasing shortness of breath. She was having cough and shortness of breath and that is why she decided to come to the emergency room. Patient was reporting to me that because of panicky symptoms, she gets out of breath during nighttime sometimes. She denied any flu-like illness. She did not have any fever or chills. She has chronic hypoxia and she is using home oxygen therapy, but in the emergency room, she was having more hypoxia than usual and that is why we admitted her to medical floor. She was treated with steroids and DuoNeb therapy and Dulera along with her home medication. The patient's diabetes was labile. Because of steroid, her blood sugar was high and that is why we changed her insulin therapy and that made her one time hypoglycemia. We advised her to resume her diabetes regimen as per home dosage. This patient has home oxygen, she has nebulizer machine and she has all nebulizer medication as well. On discharge, she only requested Tessalon and we prescribed her low-dose prednisone therapy. The rest of medications will continue as per previous. We also advised to use Mucinex p.r.n. basis. The patient is seen and examined at bedside today. All review of systems was reviewed with her and negative. The patient's old medical record completely reviewed. PHYSICAL EXAMINATION: VITAL SIGNS: Currently, temperature 98.2, pulse 89, respiratory rate 20, saturation 99%, blood pressure 137/73, weight 110 pounds. GENERAL: The patient is currently alert, awake, no obvious acute distress. HEAD: Normocephalic, atraumatic. LUNGS: Clear. CARDIAC: S1, S2 regular, without any murmurs. ABDOMEN: Soft. Bowel sounds present. EXTREMITIES: No edema. NEUROLOGIC: Nonfocal examination. Overall, this patient is medically stable for discharge today. Plan of care discussed with the patient in detail. Total time spent on discharge day 31 minutes. FELICIAD
== END 2017-02-26 14:27 | disposition home or self-care (01) | DRG 189 ==
LOC: ERS 22:18 → T4-A 02-24 01:18
PROVIDERS: ADMIT Internal Medicine; ATTEND Internal Medicine
PROC: 5A09457 Assistance with Respiratory Ventilation, 24-96 Consecutive Hours, Continuous Positive Airway Pressure (ICD-10-PCS; principal; 2017-02-24)
DX: J96.21 Acute and chronic respiratory failure with hypoxia (principal); I13.0 Hypertensive heart and chronic kidney disease with heart failure and stage 1 through stage 4 chronic kidney disease, or unspecified chronic kidney disease; I50.32 Chronic diastolic (congestive) heart failure; J44.1 Chronic obstructive pulmonary disease with (acute) exacerbation; E11.65 Type 2 diabetes mellitus with hyperglycemia; N18.2 Chronic kidney disease, stage 2 (mild); I25.10 Atherosclerotic heart disease of native coronary artery without angina pectoris; I35.0 Nonrheumatic aortic (valve) stenosis; J96.22 Acute and chronic respiratory failure with hypercapnia; F32.9 Major depressive disorder, single episode, unspecified; F41.9 Anxiety disorder, unspecified; D64.9 Anemia, unspecified; E03.9 Hypothyroidism, unspecified; E78.5 Hyperlipidemia, unspecified; Z86.73 Personal history of transient ischemic attack (TIA), and cerebral infarction without residual deficits; Z87.891 Personal history of nicotine dependence; Z88.2 Allergy status to sulfonamides; Z66 Do not resuscitate
CPT/HCPCS: 36415; 36416; 71010; 80048; 80053; 80162; 82553; 83605; 83880; 84484; 85025; 87040; 87324; 87449; 93005; 94640; 96374; J1650; J1815; J2920; J2930; J7620